=== PATIENT | male | born 1975 | race Hispanic/Latino ===

== ENCOUNTER 2019-12-20 14:41 | Observation (INO) | payer BC ==
[~2019-12-20] VITALS: Ht 175.3 cm; Wt 79.4 kg
[2019-12-20] MEDS ORDERED: NITROGLYCERIN 1GM/1 INCH PACKET TD ONE (15:13)
[2019-12-20] MEDS ORDERED: ASPIRIN 325 MG TABLET ONE (15:13)
[2019-12-20 15:19] LABS: BASOPHILS % (AUTO) 0.9 % (0.0-5.0); EOSINOPHILS % (AUTO) 4.3 % (0.0-8.0); HEMATOCRIT 43.8 % (42-54); LYMPHOCYTES % (AUTO) 36.3 % (21.0-51.0); MEAN CORPUSCULAR HEMOGLOBIN 31.5 pg (27.0-33.0); MEAN CORPUSCULAR HGB CONC 34.5 g/dL (32.0-36.0); MEAN CORPUSCULAR VOLUME 91.3 fL (79-99); NEUTROPHILS % (AUTO) 46.1 % (40.0-77.0); PLATELET COUNT (AUTO) 290 K/uL (130-400); RED CELL DISTRIBUTION WIDTH 12.4 % (11.0-15.5); WHITE BLOOD COUNT (AUTO) 5.6 K/uL (4.8-10.8)
[2019-12-20 15:26] LABS: CREATININE 0.9 mg/dL (0.5-1.5); POTASSIUM 4.3 mmol/L (3.5-5.1)
[2019-12-20 15:31] LABS: ALBUMIN 3.6 g/dL (3.5-5.0); BILIRUBIN,TOTAL 0.3 mg/dL (0.2-1.0); TOTAL PROTEIN, SERUM 8.1 g/dL (6.0-8.3)
[2019-12-20 15:40] LABS: INR 0.91 (0.85-1.15); PROTHROMBIN TIME 9.9 SEC (9.6-11.6)
[2019-12-20] MEDS ORDERED: MAG HYDROX/AL HYDROX/SIMETH ES 30 ML SUSP UDCUP ONE (16:08)
[2019-12-20] MEDS ORDERED: LIDOCAINE HCL 2% VISCOUS 15 ML UDCUP ONE (16:08)
[2019-12-20 16:42] LABS: APPEARANCE,URINE Clear (CLEAR); BILIRUBIN,URINE Negative (NEGATIVE); COLOR,URINE Yellow (YELLOW); GLUCOSE, URINE (UA) Negative (NEGATIVE); KETONES,URINE Negative (NEGATIVE); LEUKOCYTE ESTERASE ,URINE Negative (NEGATIVE); NITRATE,URINE Negative (NEGATIVE); OCCULT BLOOD,URINE Negative (NEGATIVE); PROTEIN,URINE Negative (NEGATIVE)
[2019-12-20 16:50] LABS: AMPHET/METH SCREEN,URINE NEGATIVE (NEGATIVE); BARBITURATE SCREEN, URINE NEGATIVE (NEGATIVE); BENZODIAZEPINES SCREEN,URINE NEGATIVE (NEGATIVE); CANNABINOID SCREEN,URINE NEGATIVE (NEGATIVE); COCAINE SCREEN,URINE NEGATIVE (NEGATIVE); OPIATE SCREEN,URINE NEGATIVE (NEGATIVE); PHENCYCLIDINE SCREEN,URINE NEGATIVE (NEGATIVE)
[2019-12-20] MEDS ORDERED: METOPROLOL TARTRATE 1 MG/ML 5ML VIAL IV ONE (16:58)
[2019-12-20] MEDS ORDERED: KETOROLAC TROMETHAMINE 30MG/ML ONE (16:58)
[2019-12-20] MEDS ORDERED: DIPHENHYDRAMINE HCL 25 MG CAPSULE PO PRN (18:30)
[2019-12-20] MEDS ORDERED: NITROGLYCERIN 0.4 MG SL TAB SL PRN (18:30)
[2019-12-20] MEDS: NITROGLYCERIN 1GM/1 INCH PACKET TD SCH (18:30)
[2019-12-20] MEDS ORDERED: ACETAMINOPHEN 325 MG TAB PO PRN ×2 (18:30)
[2019-12-20] MEDS ORDERED: ONDANSETRON HCL 4 MG/2 ML VIAL IV PRN (18:30)
[2019-12-20] MEDS ORDERED: MAGNESIUM 2GM PREMIX 50ML 50 ML IV SCH (18:45)
[2019-12-20] MEDS ORDERED: MAGNESIUM 2GM PREMIX 50ML 50 ML IV ONE (20:18)
[2019-12-20] MEDS: METOPROLOL TARTRATE 25 MG TAB PO SCH (21:00)
[2019-12-20] MEDS ORDERED: ATORVASTATIN CALCIUM 40 MG TABLET PO SCH (21:00)
[2019-12-20 22:21] LABS: CREATINE KINASE, TOTAL 182 U/L (21-232); MYOGLOBIN 44 ng/mL (10-92); TROPONIN I < 0.04 ng/mL (0.00-0.06)
[2019-12-20 23:18] VITALS: BP 144/97
[2019-12-20] MEDS: FAMOTIDINE 20MG TAB 20 MG TAB PO SCH (23:19)
[2019-12-21] MEDS: NITROGLYCERIN 1GM/1 INCH PACKET TD SCH (02:39)
[2019-12-21 04:00] VITALS: BP 144/95
[2019-12-21 05:43] LABS: HEMATOCRIT 40.9 % (42-54); MEAN CORPUSCULAR HEMOGLOBIN 31.3 pg (27.0-33.0); MEAN CORPUSCULAR HGB CONC 34.5 g/dL (32.0-36.0); MEAN CORPUSCULAR VOLUME 90.7 fL (79-99); PLATELET COUNT (AUTO) 257 K/uL (130-400); RED BLOOD CELL COUNT(AUTO) 4.51 MIL/uL (4.50-6.20); RED CELL DISTRIBUTION WIDTH 12.3 % (11.0-15.5); WHITE BLOOD COUNT (AUTO) 7.6 K/uL (4.8-10.8)
[2019-12-21 06:00] LABS: BAND NEUTROPHILS % (MANUAL) 5 % (0-2); EOSINOPHILS % (MANUAL) 2 % (1-6); LYMPHOCYTES % (MANUAL) 20 % (22-44); MAN.DIFF COMMENT-IMPRESSION MANUAL DIFFERENTIAL; MONOCYTES % (MANUAL) 10 % (2-9); PLATELET MORPHOLOGY COMMENT ADEQUATE; REACTIVE LYMPHOCYTES 2 % (0-0); SEGMENTED NEUTROPHILS % 61 % (40-70)
[2019-12-21 06:03] LABS: ALANINE AMINOTRANSFERASE 185 U/L (12-78); ALBUMIN 3.3 g/dL (3.5-5.0); ASPARTATE AMINOTRANSFERASE 124 U/L (10-37); BILIRUBIN,TOTAL 0.6 mg/dL (0.2-1.0); CARBON DIOXIDE 28 mmol/L (21-32); CHLORIDE 102 mmol/L (101-111); CHOLESTEROL 248 mg/dL (<200); CREATINE KINASE, TOTAL 157 U/L (21-232); CREATININE 0.9 mg/dL (0.5-1.5); GLOMERULAR FILTR. RATE CALC 97 mL/min (>60); GLUCOSE,RANDOM 91 mg/dL (70-105); HDL CHOLESTEROL 54 mg/dL (29-71); LDL DIRECT 164 mg/dL (0-99); MYOGLOBIN 43 ng/mL (10-92); POTASSIUM 3.9 mmol/L (3.5-5.1); SODIUM SERUM 138 mmol/L (136-145); TOTAL PROTEIN, SERUM 7.3 g/dL (6.0-8.3); TRIGLYCERIDES 88 mg/dL (30-200); TROPONIN I < 0.04 ng/mL (0.00-0.06); UREA NITROGEN, BLOOD 12 mg/dL (7-18)
[2019-12-21] MEDS ORDERED: ENOXAPARIN SODIUM 40 MG/0.4 ML SYRINGE SQ SCH (09:00)
[2019-12-21] MEDS ORDERED: ASPIRIN 325 MG TABLET PO SCH (09:00)
[2019-12-21] MEDS: FAMOTIDINE 20MG TAB 20 MG TAB PO SCH (09:29)
[2019-12-21] MEDS: METOPROLOL TARTRATE 25 MG TAB PO SCH (09:29)
[2019-12-21 10:07] VITALS: BP 156/93
[2019-12-21] MEDS ORDERED: PANT40TA PO (14:12)
[2019-12-21] MEDS ORDERED: ATOR40TA69 PO (14:12)
[2019-12-21] MEDS ORDERED: LISI10TA7 PO (14:12)
[2019-12-21 14:51] VITALS: BP 143/102
== END 2019-12-21 16:20 | disposition home or self-care (01) ==
LOC: EDH 14:41 → EDHIP 18:18 → 3DH 19:42
PROVIDERS: ADMIT Internal Medicine; ATTEND Internal Medicine
DX: R07.89 Other chest pain (principal); K70.10 Alcoholic hepatitis without ascites; I10 Essential (primary) hypertension; R79.89 Other specified abnormal findings of blood chemistry; E83.42 Hypomagnesemia; E78.5 Hyperlipidemia, unspecified; M25.561 Pain in right knee; F17.210 Nicotine dependence, cigarettes, uncomplicated; Z90.49 Acquired absence of other specified parts of digestive tract; Z79.899 Other long term (current) drug therapy; Z88.0 Allergy status to penicillin
CPT/HCPCS: 36415 ×2; 71045; 73562; 80053 ×2; 80061; 80305; 81003; 82550 ×3; 83735 ×2; 83874 ×2; 84484 ×4; 85025 ×2; 85610; 85730; 93005 ×4; 96372; 99285; G0378 ×7; J1650; J1885; J3475; J3490